=== PATIENT | male | born 1955 | race African-American/Black ===

== ENCOUNTER 2017-02-13 00:21 | Emergency (ER) | payer MEDICARE ==
[2017-02-13] MEDS ORDERED: cefTRIAXone\\ROCEPHIN 1 GM VIAL ONE (00:48)
[2017-02-13] MEDS ORDERED: Ibuprofen 800 MG TAB ONE (00:52)
== END 2017-02-13 01:18 | disposition home or self-care (01) ==
LOC: MADERS 00:21
DX: H66.91 Otitis media, unspecified, right ear (principal); E11.9 Type 2 diabetes mellitus without complications; E78.5 Hyperlipidemia, unspecified; I10 Essential (primary) hypertension; Z87.891 Personal history of nicotine dependence
CPT/HCPCS: 96372; J0696; J2001

== ENCOUNTER 2018-03-23 04:57 | Emergency (ER) | payer MEDICARE, OTHER ==
[2018-03-23] MEDS ORDERED: cloNIDine 0.1 MG TAB ONE (05:40)
== END 2018-03-23 06:20 | disposition home or self-care (01) ==
LOC: MADERS 04:57
DX: I10 Essential (primary) hypertension (principal); F43.9 Reaction to severe stress, unspecified; E11.9 Type 2 diabetes mellitus without complications; E78.5 Hyperlipidemia, unspecified; Z87.891 Personal history of nicotine dependence; Z79.84 Long term (current) use of oral hypoglycemic drugs; Z79.82 Long term (current) use of aspirin; Z79.899 Other long term (current) drug therapy
CPT/HCPCS: 99283

== ENCOUNTER 2019-05-21 18:09 | Emergency (ER) | payer MEDICARE ==
--- NOTE | 2019-05-21 18:55 | RAD ---
EXAM: XR Lumbar Spine 2 Or 3 View PROVIDED CLINICAL HISTORY: Trauma COMPARISON: None FINDINGS: 5 nonrib-bearing lumbar-type vertebral bodies are demonstrated. Or alignment appears normal. Vertebra l body heights appear preserved. Advanced multilevel lumbar endplate degenerative changes are seen. Lower lumbar spine facet arthritis. Vascular calcification. IMPRESSION: No radiographic evidence for an acute osseous abnormality.
[2019-05-21] MEDS ORDERED: traMADol HCl 50 MG TAB ONE (19:05)
[2019-05-21] MEDS ORDERED: Cyclobenzaprine 10 MG TAB ONE (19:06)
== END 2019-05-21 19:32 | disposition home or self-care (01) ==
LOC: MADERS 18:09
DX: S46.911A Strain of unspecified muscle, fascia and tendon at shoulder and upper arm level, right arm, initial encounter (principal); M62.830 Muscle spasm of back; I10 Essential (primary) hypertension; Z91.14 Patient's other noncompliance with medication regimen; E11.9 Type 2 diabetes mellitus without complications; E78.5 Hyperlipidemia, unspecified; Z87.891 Personal history of nicotine dependence; Z79.899 Other long term (current) drug therapy; Z79.84 Long term (current) use of oral hypoglycemic drugs; Z79.82 Long term (current) use of aspirin; V43.53XA Car driver injured in collision with pick-up truck in traffic accident, initial encounter
CPT/HCPCS: 72100

== ENCOUNTER 2019-07-18 07:50 | Emergency (ER) | payer MEDICARE, SELFPAY ==
[2019-07-18] MEDS ORDERED: Ibuprofen 400 MG TAB ONE (08:33)
== END 2019-07-18 08:35 | disposition home or self-care (01) ==
LOC: MADERS 07:50
DX: G43.719 Chronic migraine without aura, intractable, without status migrainosus (principal); E11.9 Type 2 diabetes mellitus without complications; E78.5 Hyperlipidemia, unspecified; I10 Essential (primary) hypertension; F17.210 Nicotine dependence, cigarettes, uncomplicated; Z79.84 Long term (current) use of oral hypoglycemic drugs; Z79.899 Other long term (current) drug therapy
CPT/HCPCS: 99283

== ENCOUNTER 2019-11-02 18:28 | Emergency (ER) | payer MEDICARE, MEDICAID ==
[2019-11-02] MEDS ORDERED: predniSONE 20 MG TAB ONE (19:46)
== END 2019-11-02 20:05 | disposition home or self-care (01) ==
LOC: MADERS 18:28
DX: T63.441A Toxic effect of venom of bees, accidental (unintentional), initial encounter (principal); I10 Essential (primary) hypertension; E78.5 Hyperlipidemia, unspecified; I25.2 Old myocardial infarction; E11.9 Type 2 diabetes mellitus without complications; Z87.891 Personal history of nicotine dependence; Z79.891 Long term (current) use of opiate analgesic; Z79.82 Long term (current) use of aspirin; Z79.899 Other long term (current) drug therapy; Z79.84 Long term (current) use of oral hypoglycemic drugs
CPT/HCPCS: 99282; J7512

== ENCOUNTER 2020-12-16 13:37 | Emergency (ER) | payer MEDICAID, MEDICARE | END 2020-12-16 16:00 | LOC: MADERS 13:37 | DX: Z43.1 Encounter for attention to gastrostomy (principal); E78.5 Hyperlipidemia, unspecified; I10 Essential (primary) hypertension; I25.2 Old myocardial infarction; E11.9 Type 2 diabetes mellitus without complications; Z87.891 Personal history of nicotine dependence; Z79.82 Long term (current) use of aspirin; Z79.899 Other long term (current) drug therapy; Z79.4 Long term (current) use of insulin | CPT/HCPCS: 43762 ==

== ENCOUNTER 2021-01-28 22:34 | Emergency (ER) | payer MEDICARE, MEDICAID | END 2021-01-28 23:43 | disposition home or self-care (01) | LOC: MADERS 22:34 | DX: K94.23 Gastrostomy malfunction (principal); E78.5 Hyperlipidemia, unspecified; I10 Essential (primary) hypertension; I25.2 Old myocardial infarction; R63.8 Other symptoms and signs concerning food and fluid intake; R10.9 Unspecified abdominal pain; Z86.73 Personal history of transient ischemic attack (TIA), and cerebral infarction without residual deficits; Z87.891 Personal history of nicotine dependence | CPT/HCPCS: 99283 ==

== ENCOUNTER 2021-01-30 12:14 | Emergency (ER) | payer MEDICARE, MEDICAID ==
[2021-01-30 13:07] LABS: Bilirubin Negative (Negative); Blood, Urine Moderate (Negative); Clarity Cloudy (Clear); Glucose, Urine (Dipstick) Negative (Negative); Ketone, Urine Negative (Negative); Leukocyte Large (Negative); Nitrite Positive (Negative); Protein, Urine (Dipstick) 100 mg/dL (Neg-Trace)
[2021-01-30 13:20] LABS: WBC/HPF Greater Than 50 HPF (0-3)
[2021-01-30 13:21] LABS: Bacteria/HPF 3+ HPF (None Seen); Squamous Epithelial 0-3 HPF (0-3)
== END 2021-01-30 14:10 | disposition home or self-care (01) ==
LOC: MADERS 12:14
DX: S11.90XA Unspecified open wound of unspecified part of neck, initial encounter (principal); L89.321 Pressure ulcer of left buttock, stage 1; L89.311 Pressure ulcer of right buttock, stage 1; N39.0 Urinary tract infection, site not specified; I25.2 Old myocardial infarction; E11.9 Type 2 diabetes mellitus without complications; E78.5 Hyperlipidemia, unspecified; I10 Essential (primary) hypertension; Z87.891 Personal history of nicotine dependence; Z79.84 Long term (current) use of oral hypoglycemic drugs; Z79.899 Other long term (current) drug therapy; X58.XXXA Exposure to other specified factors, initial encounter
CPT/HCPCS: 81003; 81015; 87086; 99285

== ENCOUNTER 2021-03-09 17:56 | Emergency (ER) | payer MEDICARE, MEDICAID | END 2021-03-09 19:10 | disposition home or self-care (01) | LOC: MADERS 17:56 | DX: R11.2 Nausea with vomiting, unspecified (principal); I10 Essential (primary) hypertension; E78.5 Hyperlipidemia, unspecified; E11.9 Type 2 diabetes mellitus without complications; I25.2 Old myocardial infarction; Z86.73 Personal history of transient ischemic attack (TIA), and cerebral infarction without residual deficits; Z87.891 Personal history of nicotine dependence; Z79.84 Long term (current) use of oral hypoglycemic drugs; Z79.899 Other long term (current) drug therapy | CPT/HCPCS: 93005 ==

== ENCOUNTER 2021-08-15 23:04 | Emergency (ER) | payer MEDICARE, MEDICAID ==
[~2021-08-15 23:04] MED LIST: Sodium Chloride 0.9% 100 ML BAG ONE
[2021-08-15 23:38] LABS: #Eosinphils 0.1 thou/uL (0.0-0.7); #Lymphocytes 0.8 thou/uL (1.20-3.40); #Neutrophils 2.5 thou/uL (1.40-6.50); %Basophils 0.9 % (0.0-1.0); %Eosinophils 1.6 % (0.0-10.0); %Lymphocytes 24.8 % (21.0-51.0); %Monocytes 0.7 % (0.0-10.0); %Neutrophils 72.1 % (42.0-75.0); Hemoglobin 11.5 g/dL (14.0-18.0); Mean Corpuscular HGB CONC 32.4 g/dL (32.0-36.0); Mean Corpuscular Hemoglobin 29.1 pg (27.0-31.0); Mean Corpuscular Volume 89.7 fL (78.0-98.0); Mean Platelet Volume 9.5 fL (7.4-10.4); Platelet Count 151 thou/uL (130-400); RBC Distribution Width 13.8 % (11.5-14.5); Red Blood Cell (RBC) Count 3.97 mill/uL (4.70-6.10); White Blood Cell (WBC) Count 3.4 thou/uL (4.8-10.8)
[2021-08-15 23:51] LABS: ALT (SGPT) 27 U/L (8-55); AST (SGOT) 26 U/L (5-34); Albumin 3.3 g/dL (3.4-4.8); Alkaline Phosphatase 95 U/L (40-110); Anion Gap 18 mmol/L (10-20); BUN (Urea Nitrogen) 11 mg/dL (8.4-25.7); CK (CPK) 55 U/L (30-200); Calc. Creatinine Clearance 0 mL/min (70-130); Calcium 8.5 mg/dL (7.8-10.44); Carbon Dioxide 23 mmol/L (23-31); Chloride 105 mmol/L (98-107); Globulin 3.5 g/dL (2.4-3.5); Glucose 191 mg/dL (80-115); Protein, Total 6.8 g/dL (5.8-8.1); Sodium 142 mmol/L (136-145)
[2021-08-15] MEDS ORDERED: Cefepime 2 GM VIAL ONE (23:53)
[2021-08-16] MEDS ORDERED: Vancomycin HCl 500 MG VIAL ONE (00:04)
[2021-08-16 00:14] LABS: CKMB 0.6 ng/mL (0-6.6)
[2021-08-16 00:17] LABS: SARS-CoV-2 NAA Rapid Test Not Detected (NotDetected)
[2021-08-16 00:22] LABS: Bilirubin Negative (Negative); Blood, Urine Small (Negative); Glucose, Urine (Dipstick) Negative (Negative); Ketone, Urine Negative (Negative); Leukocyte Small (Negative); Nitrite Positive (Negative); Protein, Urine (Dipstick) 30 mg/dL (Neg-Trace); Specific Gravity, Urine 1.015 (1.005-1.030); Urobilinogen 0.2 mg/dL (Less than 2)
[2021-08-16 00:23] LABS: Clarity Turbid (Clear)
[2021-08-16] MEDS ORDERED: Aspirin Chewable 81 MG TAB ONE (00:24)
[2021-08-16 00:28] LABS: Bacteria/HPF 4+ HPF (None Seen); RBC/HPF 0-3 HPF (0-3); Squamous Epithelial 0-3 HPF (0-3); Transitional Epithelial 0-3 HPF (None Seen); WBC/HPF Greater Than 50 HPF (0-3)
[2021-08-16 00:29] LABS: Calcium Oxalate Crystals 1+ HPF (None Seen)
[2021-08-16] MEDS ORDERED: Sodium Chloride 0.9% 3,000 ML ONE (01:36)
== END 2021-08-16 01:50 | disposition short-term general hospital (02) ==
LOC: MADERS 23:04
DX: N39.0 Urinary tract infection, site not specified (principal); R65.21 Severe sepsis with septic shock; R77.8 Other specified abnormalities of plasma proteins; R00.0 Tachycardia, unspecified; I10 Essential (primary) hypertension; E11.9 Type 2 diabetes mellitus without complications; E78.5 Hyperlipidemia, unspecified; I25.2 Old myocardial infarction; Z20.822 Contact with and (suspected) exposure to COVID-19; Z87.891 Personal history of nicotine dependence; Z86.73 Personal history of transient ischemic attack (TIA), and cerebral infarction without residual deficits; Z95.5 Presence of coronary angioplasty implant and graft; Z79.84 Long term (current) use of oral hypoglycemic drugs; Z79.899 Other long term (current) drug therapy
CPT/HCPCS: 70450; 71045; 80053; 81003; 81015; 82550; 82553; 83605; 84443; 84484; 85025; 87040; 87077; 87086; 87149; 87186; 93005; 96365; J0692; J3370; J3490; J7050

== ENCOUNTER 2021-11-03 16:14 | Emergency (ER) | payer OTHER, MEDICAID ==
[2021-11-03] MEDS ORDERED: Sodium Chloride 0.9% 500 ML ONE (16:25)
== END 2021-11-03 20:31 | disposition home or self-care (01) ==
LOC: MADERS 16:14
DX: E86.0 Dehydration (principal); I25.2 Old myocardial infarction; E11.9 Type 2 diabetes mellitus without complications; E78.5 Hyperlipidemia, unspecified; E78.00 Pure hypercholesterolemia, unspecified; I10 Essential (primary) hypertension; N40.0 Benign prostatic hyperplasia without lower urinary tract symptoms; Z86.73 Personal history of transient ischemic attack (TIA), and cerebral infarction without residual deficits; Z87.891 Personal history of nicotine dependence; Z79.899 Other long term (current) drug therapy
CPT/HCPCS: 99283; J7030

== ENCOUNTER 2021-11-14 19:05 | Emergency (ER) | payer MEDICAID, OTHER | END 2021-11-14 20:36 | disposition home or self-care (01) | LOC: MADERS 19:05 | DX: H61.22 Impacted cerumen, left ear (principal); I10 Essential (primary) hypertension; I25.2 Old myocardial infarction; E11.9 Type 2 diabetes mellitus without complications; E78.00 Pure hypercholesterolemia, unspecified; Z86.73 Personal history of transient ischemic attack (TIA), and cerebral infarction without residual deficits; Z95.5 Presence of coronary angioplasty implant and graft; Z87.891 Personal history of nicotine dependence | CPT/HCPCS: 69210 ==

== ENCOUNTER 2022-02-11 18:29 | Emergency (ER) | payer MEDICAID, MEDICARE, OTHER ==
[~2022-02-11 18:29] MED LIST changes: +Iopamidol 370 76% 100 ML VIAL ONE; -Sodium Chloride 0.9% 100 ML BAG ONE
[2022-02-11 20:12] LABS: #Basophils 0.1 thou/uL (0.0-0.2); #Eosinphils 0.2 thou/uL (0.0-0.7); #Lymphocytes 2.7 thou/uL (1.20-3.40); #Monocytes 0.8 thou/uL (0.11-0.59); #Neutrophils 9.4 thou/uL (1.40-6.50); %Basophils 0.6 % (0.0-1.0); %Eosinophils 1.4 % (0.0-10.0); %Lymphocytes 20.5 % (21.0-51.0); %Monocytes 5.9 % (0.0-10.0); %Neutrophils 71.5 % (42.0-75.0); Mean Corpuscular HGB CONC 32.7 g/dL (32.0-36.0); Mean Corpuscular Volume 91.7 fl (78.0-98.0); Mean Platelet Volume 8.3 fL (7.4-10.4); Platelet Count 274 10x3/uL (130-400); RBC Distribution Width 12.6 % (11.5-14.5); Red Blood Cell (RBC) Count 4.35 mill/uL (4.70-6.10); White Blood Cell (WBC) Count 13.2 10x3/uL (4.8-10.8)
[2022-02-11 20:12] LABS: Bilirubin Negative (Negative); Blood, Urine Moderate (Negative); Clarity Clear (Clear); Glucose, Urine (Dipstick) Negative (Negative); Ketone, Urine Negative (Negative); Leukocyte Negative (Negative); Nitrite Negative (Negative); Protein, Urine (Dipstick) Negative (Neg-Trace); Specific Gravity, Urine 1.025 (1.005-1.030); Urobilinogen 0.2 mg/dL (Less than 2)
[2022-02-11 20:16] LABS: WBC/HPF 0-3 HPF (0-3)
[2022-02-11 20:22] LABS: ALT (SGPT) 23 U/L (8-55); AST (SGOT) 13 U/L (5-34); Albumin 3.8 g/dL (3.4-4.8); Alkaline Phosphatase 106 U/L (40-110); Anion Gap 17 mmol/L (10-20); BUN (Urea Nitrogen) 18 mg/dL (8.4-25.7); Bilirubin, Total 0.9 mg/dL (0.2-1.2); CRP (Inflammatory) 0.95 mg/dL (= or < 0.5); Calc. Creatinine Clearance 0 mL/min (70-130); Calcium 9.1 mg/dL (7.8-10.44); Carbon Dioxide 20 mmol/L (23-31); Chloride 106 mmol/L (98-107); Estimated GFR 95; Globulin 4.3 g/dL (2.4-3.5); Glucose 152 mg/dL (80-115); Lipase 5 U/L (8-78); Potassium 3.6 mmol/L (3.5-5.1); Protein, Total 8.1 g/dL (5.8-8.1); Sodium 139 mmol/L (136-145)
[2022-02-11] MEDS ORDERED: Piperacillin/Tazobactam 3.375 GM VIAL ONE (22:18)
[2022-02-11] MEDS ORDERED: Sodium Chloride 0.9% 100 ML ONE (22:19)
[2022-02-11] MEDS ORDERED: Sodium Chloride 0.9% 0 ML ONE (22:38)
[2022-02-11] MEDS ORDERED: Sodium Chloride 0.9% 250 ML 250 ML ONE (22:39)
== END 2022-02-12 00:05 | disposition home or self-care (01) ==
LOC: MADERS 18:29
DX: K51.90 Ulcerative colitis, unspecified, without complications (principal); K59.00 Constipation, unspecified; D72.829 Elevated white blood cell count, unspecified; E11.9 Type 2 diabetes mellitus without complications; Z79.4 Long term (current) use of insulin; Z79.84 Long term (current) use of oral hypoglycemic drugs; E78.00 Pure hypercholesterolemia, unspecified; I10 Essential (primary) hypertension; Z87.891 Personal history of nicotine dependence; Z79.899 Other long term (current) drug therapy
CPT/HCPCS: 51701; 74177; 80053; 81003; 81015; 83605; 83690; 85025; 86140; 87040; 96365; 96367; J2543; J3370; J3490; J7050; Q9967

== ENCOUNTER 2022-05-17 18:01 | Emergency (ER) | payer OTHER | END 2022-05-17 22:01 | disposition home or self-care (01) | LOC: MADERS 18:01 | DX: K59.00 Constipation, unspecified (principal); I25.2 Old myocardial infarction; E11.9 Type 2 diabetes mellitus without complications; E78.00 Pure hypercholesterolemia, unspecified; Z87.891 Personal history of nicotine dependence; Z86.73 Personal history of transient ischemic attack (TIA), and cerebral infarction without residual deficits | CPT/HCPCS: 99283 ==

== ENCOUNTER 2023-02-02 14:40 | Emergency (ER) | payer MEDICARE | END 2023-02-02 16:17 | disposition home or self-care (01) | LOC: MADERS 14:40 | DX: K59.00 Constipation, unspecified (principal); I10 Essential (primary) hypertension; E11.9 Type 2 diabetes mellitus without complications; I25.2 Old myocardial infarction; Z86.73 Personal history of transient ischemic attack (TIA), and cerebral infarction without residual deficits; Z87.891 Personal history of nicotine dependence | CPT/HCPCS: 99283 ==

== ENCOUNTER 2023-09-19 09:11 | Emergency (ER) | payer MEDICARE ==
[2023-09-19 10:43] LABS: Bilirubin Small (Negative); Blood, Urine Large (Negative); Glucose, Urine (Dipstick) Negative (Negative); Ketone, Urine Trace mg/dL (Negative); Leukocyte Small (Negative); Nitrite Positive (Negative); Protein, Urine (Dipstick) > or equal to 300 mg/dL (Neg-Trace); Urobilinogen 0.2 mg/dL (Less than 2); pH, Urine 6.5 (5.0-9.0)
[2023-09-19 10:54] LABS: Clarity Hazy (Clear); RBC/HPF Greater than 50 HPF (0-3)
[2023-09-19 10:57] LABS: Bacteria/HPF Rare-Few HPF (None Seen); CAUTI Indications for Culture Dysuria,urgency,freq; Squamous Epithelial 0-3 HPF (0-3)
[2023-09-19 10:58] LABS: Mucous/LPF Few LPF (<2+)
[2023-09-19 10:59] LABS: Urine Culture Reflex Yes Yes
[2023-09-19] MEDS ORDERED: LevoFLOXacin 250 MG TAB ONE (11:26)
[2023-09-19] MEDS ORDERED: LevoFLOXacin 500 MG TAB ONE (11:26)
== END 2023-09-19 11:52 | disposition home or self-care (01) ==
LOC: MADERS 09:11
DX: T83.031A Leakage of indwelling urethral catheter, initial encounter (principal); I10 Essential (primary) hypertension; E11.9 Type 2 diabetes mellitus without complications; E78.00 Pure hypercholesterolemia, unspecified; I25.2 Old myocardial infarction; Z87.891 Personal history of nicotine dependence; Z86.73 Personal history of transient ischemic attack (TIA), and cerebral infarction without residual deficits
CPT/HCPCS: 51702; 81001; 87086

== ENCOUNTER 2023-09-30 14:33 | Emergency (ER) | payer MEDICARE ==
[2023-09-30 15:27] LABS: #Basophils 0.1 thou/uL (0.0-0.2); #Eosinphils 0.3 thou/uL (0.0-0.7); #Monocytes 0.7 thou/uL (0.11-0.59); #Neutrophils 6.5 thou/uL (1.40-6.50); %Basophils 1.1 % (0.0-1.0); %Eosinophils 2.7 % (0.0-10.0); %Lymphocytes 27.8 % (21.0-51.0); %Monocytes 6.7 % (0.0-10.0); %Neutrophils 61.7 % (42.0-75.0); Hematocrit 44.5 % (42.0-52.0); Hemoglobin 13.7 g/dL (14.0-18.0); Mean Corpuscular HGB CONC 30.9 g/dL (32.0-36.0); Mean Corpuscular Hemoglobin 28.8 pg (27.0-31.0); Mean Corpuscular Volume 93.2 fl (78.0-98.0); Mean Platelet Volume 6.7 fL (7.4-10.4); Platelet Count 289 10x3/uL (130-400); RBC Distribution Width 13.1 % (11.5-14.5); Red Blood Cell (RBC) Count 4.77 mill/uL (4.70-6.10); White Blood Cell (WBC) Count 10.6 10x3/uL (4.8-10.8)
[2023-09-30 15:42] LABS: ALT (SGPT) 19 U/L (8-55); AST (SGOT) 11 U/L (5-34); Albumin 3.2 g/dL (3.4-4.8); Alkaline Phosphatase 99 U/L (40-110); Anion Gap 14 mmol/L (10-20); BUN (Urea Nitrogen) 17 mg/dL (8.4-25.7); Calc. Creatinine Clearance 0 mL/min (70-130); Calcium 8.6 mg/dL (7.8-10.44); Carbon Dioxide 24 mmol/L (23-31); Chloride 105 mmol/L (98-107); Estimated GFR 96; Globulin 4.1 g/dL (2.4-3.5); Glucose 113 mg/dL (80-115); Lipase 6 U/L (8-78); Magnesium 2.1 mg/dL (1.6-2.6); Protein, Total 7.3 g/dL (5.8-8.1); Sodium 139 mmol/L (136-145)
== END 2023-09-30 22:40 | disposition home or self-care (01) ==
LOC: MADERS 14:33
DX: K52.9 Noninfective gastroenteritis and colitis, unspecified (principal); I71.43 Infrarenal abdominal aortic aneurysm, without rupture; I70.201 Unspecified atherosclerosis of native arteries of extremities, right leg; K59.00 Constipation, unspecified; I10 Essential (primary) hypertension; I25.2 Old myocardial infarction; E11.9 Type 2 diabetes mellitus without complications; Z79.82 Long term (current) use of aspirin; Z79.899 Other long term (current) drug therapy; Z86.73 Personal history of transient ischemic attack (TIA), and cerebral infarction without residual deficits; Z87.891 Personal history of nicotine dependence
CPT/HCPCS: 74177; 80053; 83690; 83735; 85025; Q9967; 36415

== ENCOUNTER 2024-01-11 16:59 | Emergency (ER) | payer MEDICARE ==
[2024-01-11 17:29] LABS: Bilirubin Small (Negative); Blood, Urine Large (Negative); Glucose, Urine (Dipstick) Negative (Negative); Ketone, Urine Trace mg/dL (Negative); Leukocyte Small (Negative); Nitrite Negative (Negative); Protein, Urine (Dipstick) > or equal to 300 mg/dL (Neg-Trace); Specific Gravity, Urine 1.025 (1.005-1.030)
[2024-01-11 17:30] LABS: Clarity Very Cloudy (Clear)
[2024-01-11 17:32] LABS: RBC/HPF Greater than 50 HPF (0-3)
[2024-01-11 17:33] LABS: Bacteria/HPF 2+ HPF (None Seen); CAUTI Indications for Culture Urological Procedure; Squamous Epithelial 0-3 HPF (0-3); WBC/HPF Greater Than 50 HPF (0-3)
[2024-01-11 17:34] LABS: Urine Culture Reflex Yes Yes
== END 2024-01-11 19:30 | disposition home or self-care (01) ==
LOC: MADERS 16:59
DX: N39.0 Urinary tract infection, site not specified (principal); R33.9 Retention of urine, unspecified; E11.9 Type 2 diabetes mellitus without complications; I10 Essential (primary) hypertension; Z87.891 Personal history of nicotine dependence; Z86.73 Personal history of transient ischemic attack (TIA), and cerebral infarction without residual deficits
CPT/HCPCS: 81001; 87077; 87086; 87186; 99283

== ENCOUNTER 2024-05-19 11:33 | Emergency (ER) | payer MEDICARE ==
[2024-05-19] MEDS ORDERED: hydrALAZINE 10 MG TAB ONE (13:34)
== END 2024-05-19 14:39 | disposition home or self-care (01) ==
LOC: MADERS 11:33
DX: T83.011A Breakdown (mechanical) of indwelling urethral catheter, initial encounter (principal); I10 Essential (primary) hypertension; E11.9 Type 2 diabetes mellitus without complications; E78.5 Hyperlipidemia, unspecified; I25.2 Old myocardial infarction; Z86.73 Personal history of transient ischemic attack (TIA), and cerebral infarction without residual deficits; Z87.891 Personal history of nicotine dependence; Z79.82 Long term (current) use of aspirin; Z79.84 Long term (current) use of oral hypoglycemic drugs; Z79.4 Long term (current) use of insulin
CPT/HCPCS: 51705

== ENCOUNTER 2024-09-08 16:06 | Emergency (ER) | payer MEDICARE | END 2024-09-08 18:50 | disposition home or self-care (01) | LOC: MADERS 16:06 | DX: H61.23 Impacted cerumen, bilateral (principal); I10 Essential (primary) hypertension; I25.2 Old myocardial infarction; E11.9 Type 2 diabetes mellitus without complications; Z86.73 Personal history of transient ischemic attack (TIA), and cerebral infarction without residual deficits; Z87.891 Personal history of nicotine dependence ==

== ENCOUNTER 2024-11-19 11:06 | Emergency (ER) | payer MEDICARE | END 2024-11-19 13:00 | disposition home or self-care (01) | LOC: MADERS 11:06 | DX: T83.018A Breakdown (mechanical) of other urinary catheter, initial encounter (principal); I10 Essential (primary) hypertension; E11.9 Type 2 diabetes mellitus without complications; I25.2 Old myocardial infarction; Z86.73 Personal history of transient ischemic attack (TIA), and cerebral infarction without residual deficits; F17.210 Nicotine dependence, cigarettes, uncomplicated | CPT/HCPCS: 51705 ==

== ENCOUNTER 2024-12-06 12:35 | Emergency (ER) | payer MEDICARE ==
[2024-12-06 13:35] LABS: #Basophils 0.1 thou/uL (0.0-0.2); #Eosinophils 0.2 thou/uL (0.0-0.7); #Lymphocytes 2.4 thou/uL (1.20-3.40); #Monocytes 1.1 thou/uL (0.11-0.59); #Neutrophils 9.7 thou/uL (1.40-6.50); %Basophils 0.6 % (0.0-1.0); %Eosinophils 1.6 % (0.0-10.0); %Lymphocytes 18.0 % (21.0-51.0); %Monocytes 8.0 % (0.0-10.0); %Neutrophils 71.9 % (42.0-75.0); Hematocrit 38.3 % (42.0-52.0); Hemoglobin 12.3 g/dL (14.0-18.0); Mean Corpuscular Hemoglobin 29.1 pg (27.0-31.0); Mean Corpuscular Volume 90.4 fl (78.0-98.0); Platelet Count 379 10x3/uL (130-400); Red Blood Cell (RBC) Count 4.23 mill/uL (4.70-6.10); White Blood Cell (WBC) Count 13.5 10x3/uL (4.8-10.8)
[2024-12-06 13:52] LABS: ALT (SGPT) 15 U/L (Less than 45); AST (SGOT) 16 U/L (11-34); Albumin 3.0 g/dL (3.1-4.5); Alkaline Phosphatase 102 U/L (40-110); Anion Gap 15 mmol/L (10-20); BUN (Urea Nitrogen) 13 mg/dL (8.4-25.7); Bilirubin, Total 0.8 mg/dL (0.3-1.2); Calc. Creatinine Clearance 0 mL/min (70-130); Calcium 8.8 mg/dL (7.8-10.44); Carbon Dioxide 25 mmol/L (23-31); Chloride 103 mmol/L (98-107); Globulin 4.8 g/dL (2.4-3.5); Glucose 126 mg/dL (80-115); Potassium 3.6 mmol/L (3.5-5.1); Sodium 139 mmol/L (136-145)
[2024-12-06 14:18] LABS: Lipase Less than 4 U/L (8-78)
== END 2024-12-06 19:43 | disposition home or self-care (01) ==
LOC: MADERS 12:35
DX: R10.84 Generalized abdominal pain (principal); I10 Essential (primary) hypertension; I25.2 Old myocardial infarction; E11.9 Type 2 diabetes mellitus without complications; Z86.73 Personal history of transient ischemic attack (TIA), and cerebral infarction without residual deficits; Z87.891 Personal history of nicotine dependence
CPT/HCPCS: 36415; 80053; 83690; 85025; 99284